=== PATIENT | female | born 1990 | race Caucasian/White ===

== ENCOUNTER 2017-08-02 11:09 | Emergency (ER) | payer SELFPAY ==
[~2017-08-02] VITALS: Ht 167.6 cm; Wt 61.2 kg
[2017-08-02 11:20] VITALS: BP 130/83
[2017-08-02] MEDS ORDERED: PREDNISONE20 MG ORAL (11:52)
[2017-08-02] MEDS ORDERED: ZYRTEC10 MG ORAL (11:52)
[2017-08-02 11:57] VITALS: BP 130/83
--- NOTE | 2017-08-03 06:44 | Emergency Room Report ---
History of Present Illness General Chief Complaint: Skin Rash/Abscess Source: Patient Present Illness HPI Patient presents with complaints of rash Patient is traveling and backpacking with several friends Therefore just at [place] Thursday patient noticed some increased rash Involving the upper arms and upper torso Her legs appear to be spared Denies any lesions in the mouth There was mild itching Denies any fevers Denies any chest pain or shortness of breath Denies any contact with any medications or foreign substance however they have been sleeping in different sleeping quadrants and traveling Allergies: Coded Allergies: SULFA (SULFONAMIDE ANTIBIOTICS) (Verified Allergy, Unknown, 08/02/17) Uncoded Allergies: BEANS (Allergy, Unknown, 08/02/17) NUTS (Allergy, Unknown, 08/02/17) Patient History Past Medical History: see triage record Pertinent Family History: none Reviewed Nursing Documentation: PMH: Agreed; PSxH: Agreed Nursing Documentation-PMH Past Medical History: No History, Except For Hx Asthma: Yes Review of Systems All Other Systems: negative except mentioned in HPI Physical Exam Vital Signs Date Time Temp Pulse Resp B/P (MAP) Pulse Ox O2 Delivery O2 Flow Rate FiO2 08/02/17 11:14 98.0 98 20 130/83 100 Room Air 98.1 Sp02 EP Interpretation: reviewed, normal General Appearance: well appearing, no apparent distress Head: normocephalic, atraumatic Eyes: bilateral eye PERRL, bilateral eye EOMI ENT: hearing grossly normal, normal pharynx, TMs + canals normal, uvula midline Neck: full range of motion, supple, no meningismus, no bony tend Respiratory: lungs clear, normal breath sounds, no rhonchi, no respiratory distress, no retraction, no accessory muscle use Cardiovascular #1: normal peripheral pulses, regular rate, rhythm, no edema, no gallop, no JVD, no murmur Gastrointestinal: normal bowel sounds, non tender, soft, no mass, no organomegaly, non-distended, no guarding, no hernia, no pulsatile mass, no rebound Musculoskeletal: normal inspection Neurologic: oriented x3, responsive, 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 Lymphatic: normal inspection, no adenopathy Medical Decision Making Diagnostic Impression: Primary Impression: Rash and other nonspecific skin eruption ER Course Patient's rash does not appear to be consistent with Lyme disease or other acute emergency pathology, no signs of petechiae or target cell appearance, there is no sloughing of the skin Patient will have initial conservative trial and return with any changes Last Vital Signs Date Time Temp Pulse Resp B/P (MAP) Pulse Ox O2 Delivery O2 Flow Rate FiO2 08/02/17 11:57 98.1 98 20 130/83 100 Room Air 98.1 Status: unchanged Disposition: HOME, SELF-CARE Condition: Stable Scripts Cetirizine Hcl* (ZYRTEC*) 10 Mg Tablet 10 MG ORAL DAILY, #20 TAB 0 Refills Prov: Justin Lopez DO 08/02/17 Prednisone* (PREDNISONE*) 20 Mg Tablet 20 MG ORAL BID, #12 TAB Prov: Justin Lopez DO 08/02/17 Referrals: NOT CHOSEN IPA/MD,REFERRING (PCP) Patient Instructions: Rash Additional Instructions: Patient is provided with the discharge instructions notified to follow up with primary doctor in the next 2-3 days otherwise return to the er with any worsening symptoms. Please note that this report is being documented using [employer] technology. This can lead to erroneous entry secondary to incorrect interpretation by the dictating instrument. Justin Lopez DO August 03, 2017 06:44
== END 2017-08-02 11:58 | disposition home or self-care (01) ==
LOC: EMR 11:40
DX: R21 Rash and other nonspecific skin eruption (principal); Z91.018 Allergy to other foods; J45.909 Unspecified asthma, uncomplicated
CPT/HCPCS: 99284